=== PATIENT | male | born 1960 | race African-American/Black ===

== ENCOUNTER 2017-11-23 16:57 | Emergency (ER) | payer OTHER ==
[2017-11-23] MEDS: ZIPRASIDONE 20 MG CAPSULE PO ×2 (17:46)
== END 2017-11-23 19:35 | disposition home or self-care (01) ==
LOC: ER 16:57
DX: S09.90XA Unspecified injury of head, initial encounter (principal); K21.9 Gastro-esophageal reflux disease without esophagitis; J44.9 Chronic obstructive pulmonary disease, unspecified; I10 Essential (primary) hypertension; F20.9 Schizophrenia, unspecified; E78.00 Pure hypercholesterolemia, unspecified; F03.90 Unspecified dementia, unspecified severity, without behavioral disturbance, psychotic disturbance, mood disturbance, and anxiety; F14.10 Cocaine abuse, uncomplicated; Z88.0 Allergy status to penicillin; W18.39XA Other fall on same level, initial encounter; Y93.89 Activity, other specified; Y99.8 Other external cause status; Y92.89 Other specified places as the place of occurrence of the external cause
CPT/HCPCS: 70450; 99284-25